=== PATIENT | female | born 1950 | race Two or more races ===

== ENCOUNTER 2017-08-04 02:33 | Observation (INO) | payer OTHER ==
[2017-08-04] MEDS ORDERED: ONDANSETRON 4 MG INJ IV (04:00)
[2017-08-04] MEDS ORDERED: ALBUTEROL/IPRATROPIUM (NEB) 3 ML AMP HHN (04:00)
[2017-08-04] MEDS ORDERED: NITROGLYCERIN (SL) 0.4 MG TAB SL (04:00)
[2017-08-04] MEDS ORDERED: morphine 2 MG INJ IV (04:00)
[2017-08-04] MEDS ORDERED: NACL 0.9% 3 ML SYG IV (04:00)
[2017-08-04] MEDS: PANTOPRAZOLE (EC) 40 MG TAB PO (06:04)
[2017-08-04 07:15] LABS: ADD MAN DIFF? NO
[2017-08-04 07:18] LABS: BASOPHILS % 0.3 % (0.0-2.0); EOSINOPHILS # 0.1 10^3/ul (0.0-0.5); HEMATOCRIT 36.1 % (37.0-47.0); HEMOGLOBIN 11.7 g/dl (12.0-16.0); LYMPHOCYTES # 3.2 10^3/ul (0.8-2.9); MEAN CORPUSCULAR HEMOGLOBIN 28.5 pg (29.0-33.0); MEAN CORPUSCULAR HGB CONC 32.4 g/dl (32.0-37.0); MEAN PLATELET VOLUME 10.1 fl (7.4-10.4); MONOCYTE # 0.5 10^3/ul (0.3-0.9); MONOCYTES % 6.8 % (0.0-11.0); NEUTROPHIL # 3.3 10^3/ul (1.6-7.5); NEUTROPHILS % 46.8 % (39.0-77.0); PLATELET COUNT 230 10^3/UL (140-415); RED CELL DISTRIBUTION WIDTH 14.8 % (11.5-14.5)
[2017-08-04 07:18] LABS: WHITE BLOOD COUNT 7.1 10^3/ul (4.8-10.8)
[2017-08-04 07:37] LABS: CHOLESTEROL 192 mg/dl (100-200)
[2017-08-04 07:37] LABS: CHOL/HDL RATIO 3.6 RATIO; HDL CHOLESTEROL 52 mg/dl (35-98); LDL CHOLESTEROL,CALCULATED 112 mg/dl; TRIGLYCERIDES 140 mg/dl (0-149)
[2017-08-04 07:38] LABS: CREATINE KINASE 62 IU/L (23-200)
[2017-08-04 07:44] LABS: ALANINE AMINOTRANSFERASE 28 IU/L (13-69); ALBUMIN 4.1 g/dl (3.3-4.9); ALBUMIN/GLOBULIN RATIO 1.32; ALKALINE PHOSPHATASE 79 IU/L (42-121); ANION GAP 16 (8-16); ASPARTATE AMINO TRANSFERASE 20 IU/L (15-46); BILIRUBIN,INDIRECT 0.1 mg/dl (0-1.1); BILIRUBIN,TOTAL 0.1 mg/dl (0.2-1.3); BLOOD UREA NITROGEN 19 mg/dl (7-20); CALCIUM 9.6 mg/dl (8.4-10.2); CARBON DIOXIDE 26 mmol/L (21-31); CHLORIDE 107 mmol/L (97-110); CREATININE 0.86 mg/dl (0.44-1.00); GLUCOSE 97 mg/dl (70-220); POTASSIUM 3.9 mmol/L (3.5-5.1); SODIUM 145 mmol/L (135-144); TOTAL PROTEIN 7.2 g/dl (6.1-8.1)
[2017-08-04 07:48] LABS: CK INDEX 0.7; CK-MB 0.43 ng/ml (0.0-2.4)
[2017-08-04 07:53] LABS: TROPONIN-I < 0.012 ng/ml (0.00-0.12)
[2017-08-04 08:03] LABS: HEMOGLOBIN A1C 5.6 % (0-5.9)
[2017-08-04] MEDS: ASPIRIN 81 MG TAB PO (08:49)
[2017-08-04] MEDS: LISINOPRIL 5 MG TAB PO (08:49)
[2017-08-04] MEDS: HEPARIN 5,000 UNIT/0.5 ML VIAL SC ×2 (08:54→20:28)
[2017-08-04 11:18] LABS: CREATINE KINASE 59 IU/L (23-200)
[2017-08-04 11:28] LABS: CK INDEX 0.7; CK-MB 0.41 ng/ml (0.0-2.4)
[2017-08-04 11:35] LABS: TROPONIN-I < 0.012 ng/ml (0.00-0.12)
[2017-08-04] MEDS: ACETAMINOPHEN 325 MG TAB PO ×2 (12:39→20:29)
[2017-08-04] MEDS: SUCRALFATE (100 MG/ML) 10ML CUP PO ×3 (12:39→20:24)
[2017-08-04 14:56] LABS: TROPONIN-I < 0.012 ng/ml (0.00-0.12)
[2017-08-04] MEDS: ATORVASTATIN 40 MG TAB PO (20:23)
[2017-08-05] MEDS: PANTOPRAZOLE (EC) 40 MG TAB PO (05:55)
[2017-08-05 08:11] LABS: ADD MAN DIFF? NO
[2017-08-05 08:14] LABS: BASOPHILS % 0.5 % (0.0-2.0); EOSINOPHILS # 0.1 10^3/ul (0.0-0.5); EOSINOPHILS % 1.3 % (0.0-7.0); HEMATOCRIT 36.3 % (37.0-47.0); HEMOGLOBIN 11.8 g/dl (12.0-16.0); LYMPHOCYTES # 2.7 10^3/ul (0.8-2.9); LYMPHOCYTES % 43.6 % (15.0-51.0); MEAN CORPUSCULAR HEMOGLOBIN 28.9 pg (29.0-33.0); MEAN CORPUSCULAR HGB CONC 32.5 g/dl (32.0-37.0); MEAN PLATELET VOLUME 10.1 fl (7.4-10.4); MONOCYTE # 0.4 10^3/ul (0.3-0.9); MONOCYTES % 6.3 % (0.0-11.0); PLATELET COUNT 236 10^3/UL (140-415); RED BLOOD COUNT 4.08 10^6/ul (4.20-5.40); RED CELL DISTRIBUTION WIDTH 14.9 % (11.5-14.5)
[2017-08-05 08:14] LABS: WHITE BLOOD COUNT 6.2 10^3/ul (4.8-10.8)
[2017-08-05 08:45] LABS: ANION GAP 15 (8-16); BLOOD UREA NITROGEN 26 mg/dl (7-20); CARBON DIOXIDE 29 mmol/L (21-31); CHLORIDE 104 mmol/L (97-110); CREATININE 0.93 mg/dl (0.44-1.00); GLUCOSE 95 mg/dl (70-220); MAGNESIUM 2.1 mg/dl (1.7-2.5); PHOSPHORUS 4.1 mg/dl (2.5-4.9); POTASSIUM 4.2 mmol/L (3.5-5.1); SODIUM 144 mmol/L (135-144)
[2017-08-05] MEDS: LISINOPRIL 5 MG TAB PO (08:55)
[2017-08-05] MEDS: ASPIRIN 81 MG TAB PO (08:56)
[2017-08-05] MEDS: SUCRALFATE (100 MG/ML) 10ML CUP PO (08:57)
[2017-08-05] MEDS: INFLUENZA VIRUS VACCINE 0.5 ML (DISPENSING) IM* (09:00)
[2017-08-05] MEDS: HEPARIN 5,000 UNIT/0.5 ML VIAL SC (09:02)
== END 2017-08-05 16:10 | disposition home or self-care (01) ==
LOC: TEL 02:33
DX: R07.9 Chest pain, unspecified (principal); I10 Essential (primary) hypertension; E78.5 Hyperlipidemia, unspecified
CPT/HCPCS: 80048; 80053; 80061; 82550; 82553; 83036; 83735; 84100; 84443; 84484; 85025; 93306; G0378